=== PATIENT | female | born 1985 | race Caucasian/White ===

== ENCOUNTER 2020-06-22 16:41 | Inpatient (IN) | payer BC ==
[~2020-06-22] VITALS: Ht 170.2 cm; Wt 85.3 kg
--- NOTE | 2020-06-22 17:33 | NUR ---
PT BIB SELF C/O RUQ ABDOMINAL PAIN X 1 DAY. PT REPORTS VOMITING ONE TIME THIS MORNING AND REPORTS SEEING "SPIT". PT DENIES ANY BLOOD IN EMESIS. PT REPORTS BACK PAIN X 1 DAY AND REPORTS "I THINK IT IS BECAUSE I HAVE BEEN SO TENSE LATELY". PT REPORTS GOING TO URGENT CARE TODAY AND "THEY TOLD ME I NEEDED TO COME TO THE ER". PT SKIN APPEARS WARM PINK, DRY, IN TACT. PT DENIES ANY HEADACHES, DIZZINESS OR DIARRHEA AT THIS TIME. PT AAOX4, RESP E/U. MSE COMPLETED BY DR HEART. AWAITING FURTHER ORDERS
--- NOTE | 2020-06-22 17:59 | NUR ---
ULTRA SOUND AT THE BEDSIDE
[2020-06-22 18:06] LABS: BASOPHIL % 0.2 % (0-2); PLATELET COUNT 276 x10^3mcL (130-400)
[2020-06-22 18:15] LABS: RED CELL DISTRIBUTION WIDTH 17.3 % (11.5-14.5)
[2020-06-22 18:33] LABS: CALCIUM 9.1 mg/dL (8.5-10.1); CARBON DIOXIDE 20.9 mmol/L (21-32); CHLORIDE SERUM 102 mmol/L (98-107); CREATININE SERUM 0.9 mg/dL (0.6-1.0); GFR1 > 60 mL/min; GLUCOSE SERUM 172 mg/dL (74-106); POTASSIUM SERUM 3.5 mmol/L (3.5-5.1); SODIUM SERUM 137 mmol/L (136-145)
--- NOTE | 2020-06-22 18:33 | NUR ---
PT NOTED LAYING IN ER GURNEY IN POSITION OF COMFORT. PT REPORTS IMPROVED ABDOMINAL PAIN AT THIS TIME, 12/19. PT VITAL SIGNS STABLE, NO DISTRESS NOTED. WILL CONTINUE TO MONITOR
[2020-06-22 18:38] LABS: ALBUMIN 3.4 g/dL (3.4-5.0); ALKALINE PHOSPHATASE 141 U/L (46-116); ALT/SGPT 63 U/L (14-59); AST/SGOT 145 U/L (15-37); BILIRUBIN TOTAL 0.9 mg/dL (0.20-1.00); LIPASE 196 IU/L (73-393); TOTAL PROTEIN, SERUM 7.5 g/dL (6.4-8.2)
--- NOTE | 2020-06-22 19:03 | NUR ---
REPORT GIVEN TO JAMES EARLY. HE WILL ASSUME FURTHER CARE OF THIS PT
--- NOTE | 2020-06-22 20:02 | NUR ---
PT SITTING SUPINE IN GURNEY IN A POSITION OF A COMFORT. PT AAO X4 RESPIRATIONS E/U NO DISTRESS NOTED.
--- NOTE | 2020-06-22 20:11 | NUR ---
SPOKE WITH SEB FROM [facility]; ASKED IF HIDA SCAN CAN BE POSTPONED UNTIL TOMORROW MORNING; OKAY PER DR HEART.
--- NOTE | 2020-06-22 20:48 | NUR ---
CALLED REPORT TO ABIAL TO ASSUME PRIMARY CARE OF PT.
--- NOTE | 2020-06-22 21:00 | NUR ---
RECEIVED PT FROM ED VIA WHEELCHAIR, CAME IN DUE TO EPIGASTRIC PAIN X2 DAYS. AAOX4. DENIES HEADACHE/DIZZINESS. ABLE TO FOLLOW COMMANDS. NO SOB NOTED, LUNG SOUNDS CTA. DENIES CHEST PAIN/PRESSURE. STATED THAT SHE HAS 2/10 EPIGASTRIC TO RIGHT UPPER ABDOMINAL PAIN DESCRIBED ACHING. DNEIES NAUSEA/VOMITING. LAST BM=06/22/20, FORMED. BOWEL SOUNDS ACTIVE. VOIDS. IV SITES ON THE LAC AND RFA ARE PATENT AND INTACT. SIDE RAILS UPX2. CALL LIGHT ON REACH. ENDORSED TO PRIMARY NURSE LUISA FOR CONTINUITY OF CARE
[2020-06-22 21:07] LABS: AMPHETAMINE QUAL UR NONE DETECTED (See below)
[2020-06-22 21:15] VITALS: BP 115/59
[2020-06-22 21:17] VITALS: Ht 170.2 cm; Wt 85.3 kg
[2020-06-22 21:24] LABS: TOTAL IRON BINDING CAPACITY 434 ug/dL (250-450)
[2020-06-22 21:25] LABS: IRON 19 ug/dL (50-170)
--- NOTE | 2020-06-22 21:30 | NUR ---
Pt alert, condition stable NPO, HIDA scan for tomorrow
[2020-06-23 05:19] VITALS: BP 100/60
--- NOTE | 2020-06-23 06:22 | NUR ---
Pt slept overnight, condition stable All due care rendered, no signs of distress noted Abdominal pain tolerable per pt Flagyl and cipro r/t cholecystitis, afebrile, vitals stable Ambulated to restroom, voided
[2020-06-23 07:32] VITALS: BP 99/39
[2020-06-23 08:11] LABS: CALCIUM 7.7 mg/dL (8.5-10.1); CHLORIDE SERUM 108 mmol/L (98-107); CREATININE SERUM 0.8 mg/dL (0.6-1.0); GFR1 > 60 mL/min; GLUCOSE SERUM 83 mg/dL (74-106); MAGNESIUM 1.7 mg/dL (1.8-2.4); PHOSPHOROUS 2.7 mg/dL (2.5-4.9); POTASSIUM SERUM 3.4 mmol/L (3.5-5.1); SODIUM SERUM 140 mmol/L (136-145)
[2020-06-23 08:20] LABS: BASOPHIL % 0.5 % (0-2); PLATELET COUNT 203 x10^3mcL (130-400)
[2020-06-23 08:28] LABS: RED CELL DISTRIBUTION WIDTH 17.3 % (11.5-14.5)
[2020-06-23 11:55] VITALS: BP 99/52
--- NOTE | 2020-06-23 13:18 | NUR ---
PATIENT S/P HIDA SCAN DIET WAS RESUMED WITH LOW FAT, DR CAMARILLO WANTS TO DO LAP GRAHAM. CONSENT PAPERS WILL BE PREPARED AND IT CAN BE OBTAINED WHEN PATIENT AND MD SPEAK ABOUT PROCEDURE, WHEN DOING THEIR ROUNDS IT WAS MENTIONED BREIFLY BUT PATIENT AND MD WILL SPEAK ABOUT IT.
[2020-06-23 16:15] VITALS: BP 93/51
[2020-06-23 16:39] LABS: ALT/SGPT 279 U/L (14-59); AST/SGOT 554 U/L (15-37)
--- NOTE | 2020-06-23 19:53 | NUR ---
PT RECEIVED LYING SUPINE IN BED WATCHING TV ON HER PHONE. A/OX4, CALM AND PLEASANT. RESPIRTIONS UNLABORED, CTA, RA, DENIES SOB. PERIPHERAL PULSES STRONG, NO EDEMA NOTED. ABD SOFT AND ROUND. DENIES N/V AND ABD PAIN AT THIS TIME. NO URINARY ISSUES. SKIN INTACT. AMBUALTORY WITH STEADY GAIT. BED IN LOWEST POSITION, SIDE RAILS X 2, CALL LIGHT WITHIN REACH.
[2020-06-23 21:38] VITALS: BP 117/51
--- NOTE | 2020-06-24 01:39 | NUR ---
PT SLEEPING IN BED SUPINE. RESPIRATIONS EVEN, UNLABORED. NON VERBAL PAIN INDICATORS ABSENT. IV RFA RUNNING NS@100ml/hr, PATENT, NO COMPLICATIONS TO SIRE. BED IN LWOEST POSITION, SIDE RAILS X 2, CALL LGIHT WITHIN REACH
[2020-06-24 05:36] VITALS: BP 110/52
--- NOTE | 2020-06-24 06:41 | NUR ---
PT AWAKE AND ALERT. RESPIRATIOSN UNLABORED. NO SOB OR CHEST PAIN NOTED OR REPROTED DURING SHIFT. PT REPORTED ABD PAIN BUT STATED WAS TOLERABLE AND REFUSED PAIN MEDS. NO BM DURING SHIFT OR URINARY ISSUES. NO HYPO/HYPERGLYCEMIC EVENTS. LAST FS 95. PT MAINTAINED NPO IN PREPARATION FOR SX THIS AM. IV RFA 22G RUNNING NS@ 100ML/HR PATENT, NO COMPLICATIONS TO SITE. BED IN LOWEST POSITION, SIDE RAILS X 2, CALL LIGHT WITHIN REACH
[2020-06-24 07:09] LABS: BASOPHIL % 0.9 % (0-2); PLATELET COUNT 201 x10^3mcL (130-400)
[2020-06-24 07:18] LABS: RED CELL DISTRIBUTION WIDTH 17.6 % (11.5-14.5)
--- NOTE | 2020-06-24 07:20 | NUR ---
RECEIVED PT FROM JOSE RAMIREZ. PT IS AAOX4. PT MED SURG STATUS. PT DENIES CHEST PAIN. PT ON RA, NO SOB OR DISTRESS. IV TO RFA, HEPLOCKED, CDI, AND PATENT. PT DENIES PAIN OR DISCOMFORT. ALL COMFORT AND SAFETY MEASURES IN PLACE. BED IN LOW POSITION, 2 SIDE RAILS UP. CALL LIGHT WITH IN REACH. ALL QUESTIONS AND CONCERNS ADDRESSED. WILL CONTINUE TO MONITOR PT.
[2020-06-24 07:21] LABS: ALKALINE PHOSPHATASE 171 U/L (46-116); ALT/SGPT 363 U/L (14-59); AST/SGOT 364 U/L (15-37); BILIRUBIN TOTAL 1.54 mg/dL (0.20-1.00); CALCIUM 7.6 mg/dL (8.5-10.1); CARBON DIOXIDE 21.7 mmol/L (21-32); CHLORIDE SERUM 107 mmol/L (98-107); CREATININE SERUM 0.7 mg/dL (0.6-1.0); GFR1 > 60 mL/min; GLUCOSE SERUM 94 mg/dL (74-106); POTASSIUM SERUM 3.4 mmol/L (3.5-5.1); SODIUM SERUM 140 mmol/L (136-145)
[2020-06-24 07:28] LABS: ALBUMIN 2.7 g/dL (3.4-5.0)
[2020-06-24 08:00] VITALS: BP 107/43
--- NOTE | 2020-06-24 08:16 | NUR ---
REPORT GIVEN TO PROJECT CONTROLS SCHEDULER. ALL QUESTIONS AND CONCERNS ADDRESSED. AWAITING WAREHOUSE LEAD.
--- NOTE | 2020-06-24 12:00 | NUR ---
PT RETURNED FROM OR. PT REMAINS STABLE AT THIS TIME. BP 97/46 MAP 67 HR 54 RR 18 TEMP 97.8 O2 SAT 98% RA. PT DENIES DISCOMFORT AT THIS TIME. WILL CONTINUE TO MONITOR PT.
[2020-06-24 12:42] VITALS: BP 97/46
[2020-06-24 17:01] VITALS: BP 109/59
--- NOTE | 2020-06-24 19:20 | NUR ---
REPORT GIVEN TO ALYSSA RAMIREZ. PT REMAINED STABLE THROUGHOUT MY SHIFT. ALL QUESTIONS AND CONCERNS ADDRESSED. ALL CARES ENDORSED.
--- NOTE | 2020-06-24 19:45 | NUR ---
RECEIVED REPORT FROM DAY SHIFT RN. PT AA&O X4. NO SOB ON ROOM AIR. S/P LAP GRAHAM. NO C/O N/V/ABD PAIN AT THIS TIME. PT STATES PASSING FLATUS. BANDAID X4 TO ABD. BANDAID TO MID LOWER ABD WITH DRY BLOOD STAIN. DUSTIN DRAIN TO RLQ WITH SEROSANGUINEOUS FLUID. IV TO RFA, NS INFUSING. SAFETY MEASURES IN PLACE. INSTRUCTED PT TO CALL FOR ASSISTANCE.
[2020-06-24 21:32] VITALS: BP 106/57
--- NOTE | 2020-06-25 00:45 | NUR ---
PT C/O ACHING PAIN TO ABD 6/10. TORADOL GIVEN.
[2020-06-25 06:02] VITALS: BP 102/59
[2020-06-25 06:49] LABS: BASOPHIL % 0.4 % (0-2); PLATELET COUNT 214 x10^3mcL (130-400)
[2020-06-25 06:53] LABS: RED CELL DISTRIBUTION WIDTH 17.4 % (11.5-14.5)
--- NOTE | 2020-06-25 06:54 | NUR ---
PT RESTED IN INTERVALS DURING SHIFT. NO SOB ON ROOM AIR. TORADOL GIVEN X1 FOR ABD PAIN. NO C/O N/V. PT AMBULATES IN THE HALLWAY. PT VOIDS FREELY. NO BM DURING SHIFT BUT PT REPORTS PASSING FLATUS. DUSTIN DRAIN 15ML SEROSANGUINOUS FLUID. ABD AND DUSTIN DRESSING INTACT. SAFETY MEASURES MAINTAINED. CALL LIGHT WITHIN REACH. WILL ENDORSE CARE TO DAY SHIFT RN.
[2020-06-25 07:06] LABS: ALKALINE PHOSPHATASE 168 U/L (46-116); ALT/SGPT 291 U/L (14-59); AST/SGOT 184 U/L (15-37); BILIRUBIN TOTAL 0.7 mg/dL (0.20-1.00); CALCIUM 7.9 mg/dL (8.5-10.1); CARBON DIOXIDE 21.4 mmol/L (21-32); CHLORIDE SERUM 107 mmol/L (98-107); CREATININE SERUM 0.8 mg/dL (0.6-1.0); GFR1 > 60 mL/min; GLUCOSE SERUM 90 mg/dL (74-106); POTASSIUM SERUM 3.4 mmol/L (3.5-5.1); SODIUM SERUM 141 mmol/L (136-145)
[2020-06-25 07:07] LABS: ALBUMIN 2.8 g/dL (3.4-5.0); TOTAL PROTEIN, SERUM 5.6 g/dL (6.4-8.2)
--- NOTE | 2020-06-25 07:15 | NUR ---
RECEIVED PT FROM ALYSSA RAMIREZ. PT IS AAOX4. PT MED SURG STATUS. PT DENIES CHEST PAIN. PT ON RA, NO SOB OR DISTRESS. IV TO RFA, HEPLOCKED, CDI, AND PATENT. PT DENIES PAIN OR DISCOMFORT. ALL COMFORT AND SAFETY MEASURES IN PLACE. BED IN LOW POSITION, 2 SIDE RAILS UP. CALL LIGHT WITH IN REACH. ALL QUESTIONS AND CONCERNS ADDRESSED. WILL CONTINUE TO MONITOR PT.
[2020-06-25 07:22] LABS: MAGNESIUM 1.7 mg/dL (1.8-2.4); PHOSPHOROUS 2.8 mg/dL (2.5-4.9)
[2020-06-25 07:55] VITALS: BP 101/51
--- NOTE | 2020-06-25 09:23 | NUR ---
DR GOULD MADE AWARE OF POTASSIUM 3.4. DR GOULD GAVE VERBAL ORDER FOR KCL 20 MEQ PO. ORDER CONFIRMED. ALL QUESTIONS AND CONCERNS ADDRESSED. WILL CONTINUE TO MONITOR PT.
[2020-06-25 10:41] LABS: BASOPHIL % 0.4 % (0-2); PLATELET COUNT 205 x10^3mcL (130-400)
[2020-06-25 10:48] LABS: RED CELL DISTRIBUTION WIDTH 18.1 % (11.5-14.5)
[2020-06-25 12:05] VITALS: BP 116/58
[2020-06-25] MEDS ORDERED: FER300 PO (13:59)
[2020-06-25] MEDS ORDERED: NORCO1 TA2 PO (14:00)
--- NOTE | 2020-06-25 14:27 | NUR ---
SPOKE TO DR GRIJALVA ABOUT DUSTIN DRAIN REMOVAL. DR GRIJALVA MADE AWARE THAT DUSTIN DRAINING 15 CC/SHIFT. DR GRIJALVA STATED OKAY TO REMOVE DUSTIN DRAIN. ALL QUESTIONS AND CONCERNS ADDRESSED. WILL CONTINUE TO MONITOR PT.
[2020-06-25 15:29] VITALS: BP 116/58
[2020-06-25 15:33] VITALS: BP 116/58
--- NOTE | 2020-06-25 15:55 | NUR ---
D/C INSTRUCTIONS AND PRESCRIPTION GIVEN TO PT. PT VERBALIZED UNDERSTANDING OF D/C INSTRUCTIONS. IV REMOVED. DRESSING APPLIED. ID BANDS REMOVED. DUSTIN DRAIN REMOVED. DRESSING APPLIED. ALL QUESTIONS AND CONCERNS ADDRESSED. ALL NEEDS MET. AWAITING PT'S RIDE.
--- NOTE | 2020-06-25 16:00 | NUR ---
PT IS STBALE FOR D/C AT THIS TIME. PT BEING ACCOMPANIED DOWN TO MAIN LOBBY BY CAR SALES REPRESENTATIVE.
== END 2020-06-25 16:05 | disposition home or self-care (01) | DRG 419 ==
LOC: ED 16:41 → MU 19:49
PROVIDERS: Emergency Medicine; Family Medicine; Surgery; ADMIT Internal Medicine; ATTEND Internal Medicine
PROC: 0FT44ZZ Resection of Gallbladder, Percutaneous Endoscopic Approach (ICD-10-PCS; principal; 2020-06-24 09:30)
DX: K80.00 Calculus of gallbladder with acute cholecystitis without obstruction (principal); D72.829 Elevated white blood cell count, unspecified; D50.9 Iron deficiency anemia, unspecified; E11.9 Type 2 diabetes mellitus without complications; K21.9 Gastro-esophageal reflux disease without esophagitis; Z87.891 Personal history of nicotine dependence; Z90.3 Acquired absence of stomach [part of]; Z79.01 Long term (current) use of anticoagulants; Z80.8 Family history of malignant neoplasm of other organs or systems; Z79.899 Other long term (current) drug therapy
CPT/HCPCS: 78226; 82962; A9537; C1887; G0378; J0696; J0744; J1170; J1885; J2270; J2405; J3010; J3490; J7030; J7060; Q0092; Q9967